=== PATIENT | female | born 1995 | race Caucasian/White ===

== ENCOUNTER → 2020-06-21 11:15 | Outpatient (CLI) | payer OTHER, MEDICAID, SELFPAY ==
[2020-06-21 14:27] LABS: COVID19 -Nasal RAPID Negative (Negative)
== END ==
PROVIDERS: Visit Provider Nurse Practitioner
DX: Z01.812 Encounter for preprocedural laboratory examination (principal); Z20.822 Contact with and (suspected) exposure to COVID-19
CPT/HCPCS: 87635; C9803

== ENCOUNTER 2020-06-24 06:02 | Day surgery (SDC) | payer OTHER, MEDICAID, SELFPAY ==
[2020-06-24] VITALS (18 sets, daily range): BP systolic 79–129; BP diastolic 47–81; PULSE 76–98; RESP 12–20; TEMP 36.2–36.7; O2SAT 94–99; BMI 37.2
--- NOTE | 2020-06-24 | DI.RAD.S_ITS ---
PROCEDURE: XR CERVICAL SPINE 2V OR 3V INDICATIONS: C6-7 ACDF (MOBI-C) TECHNIQUE: 2 views of the cervical spine were acquired. COMPARISON: None. FINDINGS: Intraoperative spot fluoroscopic images demonstrate postsurgical changes with artificial disc visualized at the C6-7 level. IMPRESSION: Intraoperative images demonstrate postsurgical changes of the C6-7 disc space level. Dictated by: Marco Brown M.D. on 06/24/2020 at 14:31 Approved by: Marco Brown M.D. on 06/24/2020 at 14:34
[2020-06-24] MEDS: LACTATED RINGERS 1,000 ML 42 ML IV ×2 (07:22→09:11)
--- NOTE | 2020-06-24 07:25 | PM.PREOP ---
Pre-operative Note COVID-19 COVID-19 status: Negative Result date/Date tested (Pos, Neg/Pending): 06/21/20 Interval Note History & Physical reviewed/Exam performed by Physician: Yes Changes to H&P: No
[2020-06-24] MEDS: CEFAZOLIN 2 GM/100 ML FROZ.PIGGY IV (07:45)
--- NOTE | 2020-06-24 08:22 | SUR.OPER ---
Supine, head on gel donut. Arms padded with gel pads, tucked at sides, towel roll under shoulders. Safety belt at thigh. Legs uncrossed.
[2020-06-24] MEDS: THROMBIN (RECOMBINANT) 5,000 UNIT VIAL 5000 UNIT TOP (08:33)
[2020-06-24] MEDS: BUPIVACAINE 0.25% (PF) VIAL 30 ML INJ (08:37)
[2020-06-24] MEDS: SODIUM CHLORIDE 0.9% 1,000 ML, GENTAMICIN 80 MG IRR (09:00)
--- NOTE | 2020-06-24 09:03 | PM.OP.1 ---
Operative Date/Time/Diagnoses Date of procedure: 06/24/20 Time of procedure: 09:03 Pre-op diagnosis: Cervical disc herniation with myelopathy Post-op diagnosis: same Procedure & Clinicians Procedure: C6-7 anterior cervical diskectomy and artificial disc replacement Use of microscope Same procedure as scheduled: Yes Indications: [age] year old female with progressive myelopathy. They had failed conservative management and requested operative intervention. Risks and benefits of surgery were discussed and appropriate consents were obtained. Surgeon: Michael Gilman Roads And Parking Lots Sweeper Operator: Marilee Montgomery Anesthesia Type: General Operative Notes Findings: None Closure Type: primary Specimen(s): none sent Prosthetic devices, grafts, tissues, transplants, or devices: Chris Mobi-C Estimated Blood Loss (mL): 5 Procedure in detail: Patient was brought to the operating room and intubated on the table. A time-out was performed. Preoperative antibiotics were given. The neck was prepped and draped in the standard sterile fashion. Using a skin fold, we made a 3 cm oblique incision on the left side. We used Bovie to go through the platysma and then did a standard anterolateral blunt dissection down to the precervical fascia. Fascia was nicked and elevated up. A marker was placed and x-ray was taken for localization at C6-7. We then subperiosteally elevated up the longus colli muscles. Self-retaining retractors were placed. Santee pins were placed under x-ray guidance to be parallel to the endplates. We then brought in the microscope. A scalpel used to perform an annulotomy. We then used a combination of pituitaries and curettes and Kerrison to perform a complete anterior diskectomy at C6-7. We took down the PLL and used Kerrison to remove the posterior disc material. There was still a large indentation on the left side of the cord that gradually began expanding and filling back up into the space once we had removed all the tissue. At the end we could from the nerve hook cephalad caudally and out the foramen and everything was opened. We distracted open with the parallel managing editor. We then used the horseshoes for sizing. We then used the trials. We then inserted a 13 x 15 x 5 mm size Mobi-C artificial disc replacement under fluoroscopic guidance for positioning. The traction was released and x-ray was checked again. The self-retaining retractors and Santee pins were removed and final x-rays taken. The wound was irrigated. There was no bleeding. The carotid was beating nicely. The platysma was closed. The superficial was closed. The skin was closed. A sterile dressing was placed. They were then extubated and brought to recovery room with no complications. Complications: none Post-operative Condition: stable Disposition: PACU Plan for aftercare: Overnight admission. Up with PT. Soft collar for comfort.
[2020-06-24] MEDS: fentaNYL 100 MCG/2 ML INJ IV (09:30)
--- NOTE | 2020-06-24 09:37 | SUR.PHASEI ---
Pt with equal pathology laboratory technologist. Denies any numbness or tingling to bilateral upper extremities. Pt with positive movement and sensation to bilateral lower extremities.
[2020-06-24] MEDS: HYDROMORPHONE 2 MG INJ IV (09:42)
[2020-06-24] MEDS: ONDANSETRON 4 MG/2 ML INJ IV (09:45)
[2020-06-24] MEDS: OXYCODONE/ACETAMINOPHEN 5/325 TABLET 1 TAB PO (09:56)
--- NOTE | 2020-06-24 10:07 | SUR.PHASEI ---
Report to Rhianna FU
[2020-06-24] MEDS: LACTATED RINGERS 1,000 ML 125 ML IV (11:18)
[2020-06-24] MEDS: TIZANIDINE 4 MG TABLET 2 MG PO (11:21)
--- NOTE | 2020-06-24 12:40 | PT.IIE ---
Current Diagnoses Other spondylosis with myelopathy, cervical region (06/24/20) Other cervical disc displacement, unspecified cervical region (06/24/20) Surgery Performed Operation Date: 06/24/20 07:45 Actual Procedures p C67 anterior cervical discectomy and artifical disc replacement - Michael Gilman MD Surgical History (Last Updated 06/23/20 @ 13:12 by Connie aMrtinez, RN) History of hysterectomy Medical History (Last Updated 06/23/20 @ 13:57 by Connie Martinez, RN) ADD (attention deficit disorder) Asthma Cervical spondylosis with myelopathy Depression Headache, migraine Herniated cervical disc History of UTI Insomnia Neck pain Neurologic disorder Obesity Seizure disorder Sleep apnea Physical Therapy Inpatient Evaluation/Re-Eval M1 PT/OT-IP Prior Functional Status Start: 06/24/20 14:00 Freq: NEEDED Status: Active Protocol: Document 06/24/20 12:40 AB (Rec: 06/24/20 14:13 [email or web address] Medical Review Prior Functional Status Medical History Reviewed Yes Communication able to make needs known Mobility and Gait pt stated that she is modified independent with mobility; uses forearm crutches for ambulation but unable to walk much due to her neurological disorder per pt but uses a manual w/c for outdoor mobility Social History Household Members family,friend(s) Living Arrangements House Number of Floors (Floors) One Floor Number of Stairs To Enter/Railing? no steps to enter Home Environment Standard Height Toilet,Tub/ Shower Home Equipment Crutches,Shower Seat without Backrest Additional Social History Comment has bilateral forearm crutches M2 PT-IP Current Condition Start: 06/24/20 14:00 Freq: NEEDED Status: Active Protocol: Document 06/24/20 12:40 AB (Rec: 06/24/20 14:13 AB [email or web address]) Physical Therapy Current Condition Current Condition Evaluation Date 06/24/20 Treatment Diagnosis s/p C6-7 ant. discectomy and disk replacement; difficulty in walking Precautions Cervical Spine Precautions Soft Collar for Comfort,No Heavy Lifting,Log Roll M3 PT-IP Subjective Start: 06/24/20 14:00 Freq: NEEDED Status: Active Protocol: Document 06/24/20 12:40 AB (Rec: 06/24/20 14:13 AB [email or web address]) Subjective Physical Therapy Visit Type Type Initial Evaluation Visit Start Time 12:40 Visit Stop Time 13:04 Total Visit Minutes 24 Number of BINDER AND BOX BUILDER Visits 0 Physical Therapy Visit Comments Patient Comments pt is agreeable to do PT Therapy Pain Assessment Pain When Pain Assessed At Rest Pain Present Pain Present Pain Reported Location neck Intensity 4 Scale Used Numeric (0 - 10) Pain Management Techniques Apply Cold,Modification of Treatment,Re-positioning, Timing of Activity with Medications M4 PT-IP Mobility and Gait Start: 06/24/20 14:00 Freq: NEEDED Status: Active Protocol: Document 06/24/20 12:40 AB (Rec: 06/24/20 14:13 AB [email or web address]) PT-Bed Mobility Assessment Sit to Supine Sit to Supine Standby Assistance PT-Transfer Assessment Sit to and From Stand Sit to and from Stand Contact Guard Assistance,1 Person Assistance,Use of Upper Extremities Equipment Transfer Assistive Device Front Wheeled Walker Orthotic/Prosthetic Devices or Brace: Yes Comments Mobility Comments pt just got back to the bed with nurse after using bedside commode. educated on cervical precautions and log roll bed mobility. pt's mother in room with pt. pt completed sit to stand CGA. ( +) generalized body tremors with greater tremors on RLE. ambulated in room CGA using FWW. pt closes her eyes in between tasks and stated that she is tired and sleepy. requested to go back to bed. completed log roll supine to sit SBA. positioned in bed. pt's mother assisted pt. call light and table placed within reach. ice pack also provided. Gait Assessment Gait Gait Assistance Required: Contact Guard Assist Distance (Feet) 12 Able to Maintain Weight Bearing Status Yes During Gait Assistive Devices Assistive Device Gait Belt,Front Wheeled Walker Orthotic/Prosthetic Devices or Brace: No Gait Deviations General Gait Pattern Antalgic,Decreased Stride Length,Decreased Feet Clearance Factors Limiting Gait Function Factors Limiting Gait Function Decreased Activity Tolerance, Decreased Strength,Pain,Poor Balance,Poor Safety Awareness PT-Balance Assessment Sitting Balance and Reactions Static Sitting Balance Ability Good Dynamic Sitting Balance Ability Good Standing Balance and Reactions Static Standing Balance Ability Fair Dynamic Standing Balance Ability Fair Device Used FWW M5 PT-IP Objective Assessments Start: 06/24/20 14:00 Freq: NEEDED Status: Active Protocol: Document 06/24/20 12:40 AB (Rec: 06/24/20 14:13 AB [email or web address]) Orientation Orientation/Cognition Level of Alertness Alert Orientation Name,Place,Situation Language Function Ability No Deficits Noted Gross Range of Motion Lower Extremity ROM Assessment Within Functional Limits Coordination Assessment Assessment Coordination Comments pt has sudden onsets of involuntary movement on RLE and tremors during standing and ambulation; pt stated that she has a neurological condition (did not mention the name) that started when she was in [place] Muscle Tone Muscle Tone WNL No Comments Muscle Tone Comments has (+) overall body tremors during standing and ambulation; sudden involuntary RLE movement in sitting; (+) R foot clonus M6 PT-IP Treatment Start: 06/24/20 14:00 Freq: NEEDED Status: Active Protocol: Document 06/24/20 12:40 AB (Rec: 06/24/20 14:13 AB [id number]) Physical Therapy Treatment Education Education Provided Precautions,Post-Op Packet, Safety Brace Education Donning,Iyanbito,Caregiver Other Treatments Other Treatment Performed educated pt's mother on soft collar management M7 PT-IP Assessment and Plan Start: 06/24/20 14:00 Freq: NEEDED Status: Active Protocol: Document 06/24/20 12:40 AB (Rec: 06/24/20 14:13 AB [id number]) PT Summary Assessment and Plan Potential Rehabilitation Potential Good Status of Condition at Evaluation Evolving Summary Impairments Pain,ROM,Strength,Balance, Coordination,Sensation,Tone, Cognition,Bed Mobility, Transfers,Gait,Activity Tolerance Assessment Summary pt requiring CGA with mobility and will have assist at all time at home. pt is hoping to go home later today and is aware of her precautions and limitations. pt may go home with assist. Goals Bed Mobility Goal Independent Transfer Goal Independent,Crutches Gait Goal Independent,Crutches Gait Distance 50 Days to Meet Goals 5 Frequency of Treatment Frequency Of Treatment Twice a Day Treatment Plan Physical Therapy Treatment Plan Bed Mobility Training,Transfer Training,Gait Training, Therapeutic Exercise,Balance Retraining,Post Op Education, Discharge Planning,Hot or Cold Pack,Neuromuscular Re-ed, Coordination Retraining,Manual Therapy Other Recommendations and Next Treatment ambulation using forearm Focus crutches Recommendations To Nursing Amount of Assist Needed 1 Person Assist Discharge Recommendations PT Discharge Recommendations Home with 06/12 Assist Available Transportation Needs at Discharge Private Vehicle
--- NOTE | 2020-06-24 13:53 | OT.IP.EVAL ---
Current Diagnoses Other spondylosis with myelopathy, cervical region (06/24/20) Other cervical disc displacement, unspecified cervical region (06/24/20) Surgery Performed Operation Date: 06/24/20 07:45 Actual Procedures p C67 anterior cervical discectomy and artifical disc replacement - Michael Gilman MD Past Medical History (Last Updated 06/23/20 @ 13:57 by Connie Martinez, RN) ADD (attention deficit disorder) Asthma Cervical spondylosis with myelopathy Depression Headache, migraine Herniated cervical disc History of UTI Insomnia Neck pain Neurologic disorder Obesity Seizure disorder Sleep apnea Surgical History (Last Updated 06/23/20 @ 13:12 by Connie Martinez, RN) History of hysterectomy Occupational Therapy Inpatient Evaluation/Re-Eval M1 PT/OT-IP Prior Functional Status Start: 06/24/20 14:19 Freq: NEEDED Status: Active Protocol: Document 06/24/20 14:19 [facility] (Rec: 06/24/20 14:36 [facility] [id number]) Medical Review Prior Functional Status Medical History Reviewed Yes Communication able to make needs known Mobility and Gait pt stated that she is modified independent with mobility; uses forearm crutches for ambulation but unable to walk much due to her neurological disorder per pt but uses a manual w/c for outdoor mobility Activities of Daily Living and IADL's Pt states prior able to do her ADl's and needing assist from her mom to help get into the shower and for showering at times. Prior Functional Level (Other details) Pt's family will be there to assist her at home as someone will be home at all times until Tuesday. Social History Household Members family,friend(s) Living Arrangements House Number of Floors (Floors) One Floor Number of Stairs To Enter/Railing? no steps to enter Home Environment Standard Height Toilet,Tub/ Shower Home Equipment Crutches,Shower Seat without Backrest Additional Social History Comment has bilateral forearm crutches M2 OT-IP Current Condition Start: 06/24/20 14:19 Freq: Status: Active Protocol: Document 06/24/20 14:19 [facility] (Rec: 06/24/20 14:36 [facility] [id number]) Occupational Therapy Current Condition Current Condition Evaluation Date 06/24/20 Treatment Diagnosis Cervical disc herniation with myelopathy, s/p C6-7 disc diskectomy Post Operative Precautions Cervical Spine Precautions Soft Collar for Comfort,No Heavy Lifting,Log Roll M3 OT- IP Subjective and Pain Start: 06/24/20 14:19 Freq: Status: Active Protocol: Document 06/24/20 14:19 [facility] (Rec: 06/24/20 14:36 [facility] [id number]) OT- Subjective Occupational Therapy Visit Type Type Initial Evaluation Visit Start Time 13:17 Visit Stop Time 13:53 Total Visit Minutes 36 Occupational Therapy Visit Comments Patient Comments Pt agreed to do OT eval, pt's mother present in the room for eval. Patient/Caregiver Goals To go home. OT Pain Assessment Pain When Pain Assessed At Rest Pain Present Pain Present Pain Reported Location neck Intensity 4 Scale Used Numeric (0 - 10) M4 OT- IP ADL's Start: 06/24/20 14:19 Freq: Status: Active Protocol: Document 06/24/20 14:19 [facility] (Rec: 06/24/20 14:36 [facility] [id number]) OT [id number] Comments OT Self-Feeding Comments Pt states did not have any eating issues. Re-educated about eating upright , chew food thoroughly, eat softer food, and eating cold food may also be helpful. PT already gave pt information sheet for eating needs after cervical sx . OT ADL-Grooming General Evaluation Grooming Ability Standby Assistance OT ADL-Oral Care General Eval Oral Care Ability Standby Assistance Comments Oral Care Comments Educated to spit into a cup or lean at her hips to best follow her cervical precautions. OT ADL-Dressing General Eval Upper Body Dressing Ability Independent Lower Body Dressing Ability Standby Assistance Comments OT Dressing Comments Pt able to comfortably cross her legs over to lópez/doff her brief,pants and socks. Cued pt to sit for dressing needs. OT ADL-Toileting Comments OT Toileting Comments Pt not having to use the toilet. Educated pt to be mindful of her head positioning when wiping. OT ADL-Bathing Comments OT Bathing Comments Pt states has a shower stool and prior that her mother was assisting her to get into the shower. M5 OT- IP IADL's Start: 06/24/20 14:19 Freq: Status: Active Protocol: Document 06/24/20 14:19 [facility] (Rec: 06/24/20 14:36 [facility] [id number]) OT-Instrumental Activities of Daily Living Home Safety Awareness Awareness of Need for Assistance at Home Good Awareness Medication Management Medication Management No Deficits Identified Meal Preparation Meal Preparation Caregiver Provides Assist Abrasives Sales Representative Abrasives Sales Representative Caregiver Provides Assist M6 OT- IP Functional Cognition Start: 06/24/20 14:19 Freq: Status: Active Protocol: Document 06/24/20 14:19 [facility] (Rec: 06/24/20 14:36 [facility] [id number]) Cognitive Factors Limiting Selfcare Function Cognitive Ability Level of Alertness Alert Patient Orientation Name,Age,Place,Situation Attention Span Ability Capable of Focused Attention, Capable of Sustained Attention Ability to Follow Commands Able to Follow One Step Commands Memory Description No Deficits Noted Safety Awareness Underestimates Need for Assistance Cognitive Comments Cognitive Assessment Comments Pt just mainly needing initial vc to slow down and reminders to sit prior to getting dressed. Pt has a very supportive mom who was present for OT eval and will be able to assist pt for all her needs as needed. OT- Vision and Hearing OT- Hearing Assessment OT- Hearing Assessment WFL OT- Vision Assessment Visual Acuity Glasses All The Time M7 OT- IP Mobility and Balance Start: 06/24/20 14:19 Freq: Status: Active Protocol: Document 06/24/20 14:19 [facility] (Rec: 06/24/20 14:36 [facility] [id number]) OT- Bed Mobility Assessment Supine to Sit Supine to Sit Assist Standby Assistance OT-Transfer Assessment Sit to and From Stand Sit to and from Stand Standby Assistance Transfers Transfer Ability Standby Assistance Technique Transfer Destination Bed Devices Transfer Assistive Devices Gait Belt,Forearm Crutches Comments Mobility Comments SBA with forearm crutches in the room. OT- Balance Assessment Sitting Balance and Reactions Static Sitting Balance Ability Good Dynamic Sitting Balance Ability Good Standing Balance and Reactions Static Standing Balance Ability Fair M8 OT- IP Objective Assessments Start: 06/24/20 14:19 Freq: Status: Active Protocol: Document 06/24/20 14:19 [facility] (Rec: 06/24/20 14:36 [facility] [id number]) OT Gross Range of Motion Upper Extremity Range of Motion Assessment Within Functional Limits M9 OT- IP Assessment and Plan Start: 06/24/20 14:19 Freq: Status: Active Protocol: Document 06/24/20 14:19 [facility] (Rec: 06/24/20 14:36 [facility] [id number]) OT Summary Assessment and Plan Potential Rehabilitation Potential Good Analytic Complexity at Evaluation Low Summary OT Impairments Pain,Functional Mobility, Toileting,Bathing,Shower Transfers Progress Towards Goals Progressing Toward Goals Assessment Summary Pt low complexity and main barrier is pain and needing reminders to slow down. Pt has a very supportive family to assist her at home. Pt looking to go home today. Pt's mother has good understanding to be able to safely assist pt for all ADL needs. Goals Patient/Caregiver Education Goal Demonstrate Post-Op Precautions Days to Meet Goals 1 Frequency of Treatment Frequency Of Treatment Once a Day Treatment Plan OT Treatment Plan ADL Training,Functional Cognition Training,Functional Mobility,Patient/Family Education,Discharge Planning Discharge Recommendations OT Discharge Recommendations Home with Assistance Transportation Needs at Discharge Private Vehicle
[2020-06-24] MEDS: TRAMADOL 50 MG TABLET PO (14:42)
--- NOTE | 2020-06-24 15:32 | PC.NURSE ---
Pt dressed with OT. IV removed, intact, tolerated well. Pt education given to pt and mother, discussed- activity, weight precautions, medications/medication safety, s/s of infection, diet, post op precautions, and reasons to seek medical attention. Pt and mother expressed understanding of education. All belongings packed up and sent with mother. Pt left via w/c by [employer] DEVELOPER to mother's POV.
== END 2020-06-24 15:34 | disposition home or self-care (01) ==
LOC: OR 06:05 → AC 06:05
PROVIDERS: PCP Family Medicine; Referring Provider Family Medicine; Visit Provider Orthopaedic Surgery
PROC: (CPT 22856; principal; 2020-06-24 07:45)
DX: M50.223 Other cervical disc displacement at C6-C7 level (principal); M47.12 Other spondylosis with myelopathy, cervical region; E66.9 Obesity, unspecified; J45.909 Unspecified asthma, uncomplicated; G47.33 Obstructive sleep apnea (adult) (pediatric); G40.909 Epilepsy, unspecified, not intractable, without status epilepticus; Z68.37 Body mass index [BMI] 37.0-37.9, adult
CPT/HCPCS: 22856; 72040; 76000; 97162; 97165; 97535; C1776; J0330; J0690; J1100; J1170; J2405; J2704; J3010